=== PATIENT | female | born 1985 | race Caucasian/White ===

== ENCOUNTER 2020-07-27 10:32 | Outpatient (REF) | payer MEDICARE, MEDICAID, SELFPAY ==
[2020-07-27 13:50] LABS: MANUAL DIFF FLAG NO
[2020-07-27 14:12] LABS: Basophils Absolute Auto 0.1 X10*3/uL (0.0-0.2); Basophils Percent Auto 0.5 % (0-2); Eosinophils Absolute Auto 0.3 X10*3/uL (0.0-0.4); Eosinophils Percent Auto 2.5 % (0-4); Hematocrit 40.5 % (37-47); Hemoglobin 13.6 g/dl (12.0-16.0); Imm Gran Abs Auto 0.06 X10*3/uL (0.00-0.03); Imm Gran Pct Auto 0.5 % (0.0-0.4); Lymphocytes Absolute Auto 2.5 X10*3/uL (1.2-4.9); Mean Corpuscular HGB Conc 33.6 g/dl (31.0-35.0); Mean Corpuscular Volume 95.3 fL (80-98); Monocytes Absolute Auto 0.7 X10*3/uL (0.1-1.2); Monocytes Percent Auto 5.3 % (2-11); Neutrophils Absolute Auto 8.9 X10*3/uL (2.0-8.3); Neutrophils Percent Auto 71.2 % (45-73); Platelet Count 324 X10*3/uL (160-400); Red Blood Count 4.25 X10*6/uL (4.20-5.50); Red Cell Distribution Width 13.3 % (11.0-16.0); White Blood Count 12.5 X10*3/uL (4.8-10.8)
[2020-07-27 14:19] LABS: Estimated Average Glucose 97 mg/dL
[2020-07-27 14:23] LABS: Glucose Urine UA NEG (NEG); Leukocyte Esterase Urine NEG (NEG); Nitrite Urine NEG (NEG); PH 5.5 (5.0-8.0); Specific Gravity - Urine 1.025 (1.005-1.025); Urine Blood TRACE (NEG); Urine Ketones NEG (NEG); Urine Protein NEG (NEG-TRACE)
[2020-07-27 14:29] LABS: Appearance Urine CLEAR; Color Urine YELLOW
[2020-07-27 14:37] LABS: Alanine Aminotransferase 14 U/L (0-31); Albumin Level 3.8 g/dL (3.5-5.0); Alkaline Phosphatase 69 U/L (39-117); Anion Gap 12 (12-20); Aspartate Amino Transferase 16 U/L (5-31); Bilirubin Total 0.6 mg/dL (0.0-1.0); Blood Urea Nitrogen 7 mg/dL (9-16); Calcium 8.1 mg/dL (8.4-10.2); Carbon Dioxide 24 mmol/L (22-29); Chloride 107 mmol/L (96-108); Cholesterol 159 mg/dL; Estimated Glomerular Filt Rate > 60; Glucose Fasting 70 mg/dL (60-99); HDL Cholesterol 44 mg/dL; LDL Cholesterol Calculated 97 mg/dl; Potassium 4.4 mmol/L (3.3-5.1); Sodium 139 mmol/L (135-145); Total Protein 6.4 g/dL (6.5-8.0); Triglycerides 92 mg/dL
[2020-07-27 14:38] LABS: Bacteria Urine TRACE /LPF; RBC Urine 0-2 /HPF (0); Squamous Epithelial Cell Urine 3+ /LPF; WBC Urine 0-2 /HPF (0-4)
[2020-07-27 15:00] LABS: TSH reflex Free T4 2.03 uIU/mL (0.32-4.0); Vitamin D 25-OH Total 20.5 ng/mL (>30)
== END 2020-07-27 10:33 | disposition home or self-care (01) ==
LOC: HO.HMGCLDS 10:32
PROVIDERS: PCP Internal Medicine; Visit Provider Internal Medicine
DX: Z00.01 Encounter for general adult medical examination with abnormal findings (principal); F20.9 Schizophrenia, unspecified; F31.9 Bipolar disorder, unspecified; Z86.32 Personal history of gestational diabetes
CPT/HCPCS: 36415; 80053; 80061; 81001; 81003; 82306; 83036; 84443; 85025

== ENCOUNTER 2022-05-15 12:31 | Outpatient (REF) | payer OTHER, SELFPAY ==
[2022-05-15 13:55] LABS: MANUAL DIFF FLAG NO
[2022-05-15 14:08] LABS: Basophils Absolute Auto 0.1 X10*3/uL (0.0-0.2); Basophils Percent Auto 0.6 % (0-2); Eosinophils Absolute Auto 0.3 X10*3/uL (0.0-0.4); Eosinophils Percent Auto 2.4 % (0-4); Hematocrit 43.2 % (37.0-47.0); Hemoglobin 14.3 g/dl (12.0-16.0); Imm Gran Abs Auto 0.06 X10*3/uL (0.00-0.03); Imm Gran Pct Auto 0.5 % (0.0-0.4); Lymphocytes Percent Auto 25.2 % (20-40); Mean Corpuscular HGB Conc 33.1 g/dl (31.0-35.0); Mean Corpuscular Hemoglobin 31.7 pg (27.0-33.0); Mean Corpuscular Volume 95.8 fL (80.0-98.0); Mean Platelet Volume 9.6 fL (9.4-12.3); Monocytes Absolute Auto 0.7 X10*3/uL (0.1-1.2); Monocytes Percent Auto 6.1 % (2-11); Neutrophils Absolute Auto 7.8 x10*3/uL (2.0-8.3); Neutrophils Percent Auto 65.2 % (45-73); Platelet Count 358 X10*3/uL (160-400); Red Blood Count 4.51 X10*6/uL (4.20-5.50); Red Cell Distribution Width 12.6 % (11.0-16.0); White Blood Count 11.9 X10*3/uL (4.8-10.8)
[2022-05-15 14:11] LABS: Alanine Aminotransferase 12 U/L (0-31); Anion Gap 14 (12-20); Aspartate Amino Transferase 13 U/L (5-31); Blood Urea Nitrogen 6 mg/dL (9-16); Calcium 9.1 mg/dL (8.4-10.2); Carbon Dioxide 25 mmol/L (22-29); Chloride 105 mmol/L (96-108); Cholesterol 164 mg/dL; Estimated Glomerular Filt Rate > 60; Glucose Fasting 79 mg/dL (60-99); HDL Cholesterol 36 mg/dL; LDL Cholesterol Calculated 111 mg/dl; Potassium 4.2 mmol/L (3.3-5.1); Sodium 140 mmol/L (135-145); Triglycerides 88 mg/dL
[2022-05-15 14:14] LABS: Estimated Average Glucose 103 mg/dL; Hemoglobin A1c % 5.2 %
[2022-05-15 16:00] LABS: Vitamin D 25-OH Total 25.5 ng/mL (>30)
== END 2022-05-15 12:32 | disposition home or self-care (01) ==
LOC: HO.HMGCLDS 12:31
PROVIDERS: PCP Internal Medicine; Visit Provider Internal Medicine
DX: Z00.01 Encounter for general adult medical examination with abnormal findings (principal); F20.9 Schizophrenia, unspecified; Z86.39 Personal history of other endocrine, nutritional and metabolic disease
CPT/HCPCS: 36415; 80048; 80061; 82306; 83036; 84450; 84460; 85025

== ENCOUNTER 2023-05-23 11:54 | Outpatient (AMB) | payer OTHER, SELFPAY ==
--- NOTE | 2023-05-23 12:41 | A.OFFPC_ITS ---
Vital Signs 05/23/23 12:42 Height 5 ft Weight 147 lb BMI 28.7 BP 110/74 Blood Pressure Location Lt brachial Position Sitting Pulse 65 Pulse Source Pulse Oximeter Pulse Oximetry (%) 98 Oxygen Delivery Method Room Air Intake Visit Reasons: PE Intake Note: Pt is here today for PE. 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 Allergies haloperidol [From Haldol] Adverse Reaction (Verified 10/20/23 11:24) hives Medication List - Last Reconciled 05/23/23 by Anupama Eldridge MD melatonin 3 mg PO BEDTIME PRN olanzapine 10 mg PO BEDTIME Tobacco use date assessed: 05/23/23 Dental Screening Dental Screen Date: 05/23/23 Did you have a dental visit in the last 12 months?: Yes Did you have a dental problem in the last 6 months where you did not have access to dental care?: No Was dental information given to patient?: Patient has dentist HPI HPI Comments History of Present Illness Details 37-year-old lady here today for physical exam. She has history of schizophrenia currently followed at [facility] currently on olanzapine. She goes to [facility] for her routine Pap and pelvic exam patient states that she just had her Pap earlier this year with normal findings. [facility] Medical History (Updated 05/27/24 @ 02:49 by Anupama Eldridge MD) History of gestational diabetes Smoker unmotivated to quit Eczema History of demise, not currently Fracture of phalanx of index finger with routine healing Schizophrenia Surgical History No pertinent past surgical history Family History Father Family hx-arthritis Hx of diabetes mellitus Hyperlipidemia Mother History of cardiac murmur Tachycardia Brother Schizophrenia Social History Housing: Apartment Patient Tobacco Use Status: Current everyday Tobacco user Cigarettes Per Day: 0.5 Years Smoked: 10 e-Cigarette/Vaping Use: Never Used Current occupational status: unemployed Cognitive needs: No Hearing needs: No Vision needs: No Questionnaire PHQ-9 Over the last 2 weeks, how often have you been bothered by any of the following problems? 1. Little interest or pleasure in doing things: not at all 2. Feeling down, depressed, or hopeless: not at all 3. Trouble falling or staying asleep, or sleeping too much: not at all 4. Feeling tired or having little energy: not at all 5. Poor appetite or overeating: not at all 6. Feeling bad about yourself - or that you are a failure or have let yourself or your family down: not at all 7. Trouble concentrating on things, such as reading the newspaper or watching television: not at all 8. Moving or speaking so slowly that other people could have noticed. Or the opposite - being so fidgety or restless that you have been moving around a lot more than usual: not at all 9. Thoughts that you would be better off or of hurting yourself in some way: not at all Total score: 0 Depression Screening Interpretation: Negative (Has schizophrenia, currently being followed by Alfredo Rizvi at [facility]) Depression Screening Done: Yes 54244 - PHQ-9 Billing: Yes Source: Developed by Drs. Reagan Thomas, Nannette Pearl, Con Alvarado and colleagues, with an educational esha from [employer]. Thrive Questionnaire Date Thrive assessed: 05/23/23 I am a: Patient What is your living situation today?: I have a steady place to live Within the past 12 months, did the food you bought not last and you didn't have the money to get more?: Never true Within the past 12 months, did you worry whether your food would run out before you got money to buy more?: Never true Do you have trouble paying for medicines?: No Do you have trouble getting transportation to medical appointments?: No Do you have trouble paying your heating and electricity bill?: No Do you have trouble taking care of your child, family member or friend?: No Do you have trouble with day-to-day activities such as bathing, preparing meals, shopping, managing finances, etc.?: No Are you currently unemployed and looking for a job?: No Are you interested in more education?: No Please select the resources that you would like help with: None AUDIT C Alcohol Use Questionnaire (AUDIT-C) 1. How often do you have a drink containing alcohol?: Never 3. How often do you have six or more drinks on one occasion?: Never Total Score: 0 CHRISTIE-7 AMB Questionnaire CHRISTIE-7 Date CHRISTIE - 7 assessed: 05/23/23 Feeling nervous, anxious, or on edge: 0 = Not at all Not being able to stop or control worryin = Not at all Worrying too much about different things: 0 = Not at all Trouble relaxin = Not at all Being so restless that it is hard to sit still: 0 = Not at all Becoming easily annoyed or irritable: 0 = Not at all Feeling afraid as if something awful might happen: 0 = Not at all Total CHRISTIE-7 score (0-4 normal; 5-9 mild; 10-14 moderate; 15-21 severe): 0 Source: Developed by Drs. Reagan Thomas, Nannette Pearl, Con Alvarado and colleagues, with an educational esha from [employer]. CHRISTIE-7 Assessment Billing CHRISTIE-7 Assessment Tool: CHRISTIE-7 Assessment 34865 Review of Systems Const Denies body aches, Denies fatigue, Denies fever(s), Denies headache(s) and Denies weakness Eyes Denies change in vision ENT Denies dizziness, Denies headache(s), Denies nasal congestion, Denies nasal discharge and Denies sore throat Card Denies chest pain, Denies lightheadedness, Denies palpitations and Denies dyspnea Resp Denies chest congestion, Denies cough, Denies dyspnea and Denies wheezing GI Denies abdominal pain, Denies change in bowel habits and Denies heartburn Denies urinary frequency, Denies dysuria and Denies urinary urgency Musc Reports no additional complaints and Reports stiffness Skin/Breast Denies lesions and Denies rash Neuro Denies dizziness, Denies headache(s) and Denies weakness Psych Reports no additional complaints Endo Denies fatigue, Denies polydipsia, Denies polyuria and Denies palpitations Carl/Lymph Denies easy bruising Aller/Immun Denies seasonal rhinorrhea and Denies wheezing Physical exam (Primary Care) Vital Signs: Last Vital Signs Pulse 65 05/23/23 12:42 BP 110/74 05/23/23 12:42 Pulse Ox 98 05/23/23 12:42 Oxygen Delivery Method Room Air 05/23/23 12:42 BMI result Body Mass Index 28.7 Tobacco/Smoking Status: Tobacco use Status Tobacco use date assessed 05/23/23 05/23/23 12:47 Patient Tobacco Use Status Current everyday Tobacco 05/23/23 12:41 e-Cigarette/Vaping Use Never Used 05/23/23 12:41 Are you ready to quit: No PHQ-9: PHQ-9 Score PHQ-9: Total score 0 05/23/23 13:16 Depression Screening Interpretation: Negative (Has schizophrenia, currently being followed by Alfredo Rizvi at [facility]) Thrive Assessment: Date of Thrive Assessment Date Thrive assessed 05/23/23 05/23/23 13:16 Const General: comfortable, no acute distress and alert Nutritional Appearance: average body habitus Orientation/consciousness: patient oriented x3 HENMT Ears: TM's normal bilaterally and EAC's normal General nose exam: Normal external nose present and No nasal discharge present Face and sinus: Yes face symmetric Mouth: Normal oral and palatal mucosa present, oropharynx normal and moist mucous membranes Eyes General: appearance normal, both eyes and all related structures Neck Neck: Yes full ROM, Yes no lymphadenopathy, Yes no meningeal signs and Yes supple Thyroid: Thyroid normal Chest Chest palpation & inspection: normal inspection of the chest Breast/axilla palpation: normal palpation of the breasts Resp Effort & Inspection: normal respiratory effort and able to speak in complete sentences Auscultation: clear to auscultation bilaterally Cardio Rate: regular rate Rhythm: regular rhythm Heart sounds: S1 normal heart sound present and S2 normal heart sound present GI Palpation (GI): Soft to palpation, nontender, no guarding and no masses Auscultation: normal bowel sounds General: Yes no CVA tenderness and Yes deferred Back/Spine/Pelvis Back: no CVA tenderness and No back tenderness Skin General skin exam: no rashes or lesions noted Neuro General: patient oriented x3, gait normal, moves all extremities, Normal light touch and pain sensation, no meningeal signs, no focal motor deficits and CN's II-XI intact bilaterally Extrem General: Yes normal to inspection, Yes full ROM, Yes no joint enlargement, Yes no clubbing, cyanosis or edema, Yes no calf tenderness and Yes normal gait Psych Appearance: grossly normal and well kempt Mental Status: mental status grossly normal Speech and movement: Normal speech and movement present Affect: normal affect Attitude: cooperative Thought process: Normal thought process present Office Procedures Flu Questionnaire Does the patient have a severe egg allergy?: No Does the patient have severe life threatening allergies?: No Does the patient have a fever or illness today?: No Has the patient ever had Guillain-Ceylon Syndrome?: No Has the patient ever had any past reaction to a flu shot?: No Immunizations flu vacc [id number] 6mos up(PF) 60 mcg(15 mcgx4)/0.5 mL IM syringe Performing Provider: Anupama Eldridge MD [facility] Administered by: COLTON Nunes on 05/23/23 13:17 Dose Route Admin Location Dispensed Lot Number Expiration Date NDC Employment Counselor 0.5 mL IM Right Deltoid 0.5 mL [id number] 12/21/23 14707-722-78 MSI VIS Given Date VIS Provided VIS Publication Date 05/23/23 Single Vaccine 21 Eligibility Eligibility Date Funding Source Not [facility] Eligible 05/23/23 Private Coding Level of Care Code Est Pt Prev Care 18-39y(02267) Diagnoses Annual visit for general adult medical examination with abnormal findings Z00.01 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
[2023-05-23 12:42] VITALS: BP 110/74; PULSE 65; O2SAT 98; BMI 28.7
== END 2023-05-23 14:06 | disposition home or self-care (01) ==
PROVIDERS: Visit Provider Internal Medicine
DX: Z00.00 Encounter for general adult medical examination without abnormal findings (principal); F20.3 Undifferentiated schizophrenia; F17.200 Nicotine dependence, unspecified, uncomplicated
CPT/HCPCS: 90471; 90686; 99395

== ENCOUNTER 2023-05-29 08:50 | Outpatient (REF) | payer OTHER, SELFPAY ==
[2023-05-29 11:52] LABS: Alanine Aminotransferase 18 U/L (0-31); Aspartate Amino Transferase 17 U/L (5-31); Cholesterol 170 mg/dL (<200); Glucose Fasting 81 mg/dL (60-99); HDL Cholesterol 42 mg/dL (>40); LDL Cholesterol Calculated 111 mg/dL (<100); Triglycerides 86 mg/dL (<150)
[2023-05-29 12:09] LABS: TSH reflex Free T4 1.18 uIU/mL (0.32-4.0)
== END 2023-05-29 08:51 | disposition home or self-care (01) ==
LOC: HO.HMGCLDS 08:50
PROVIDERS: PCP Internal Medicine; Visit Provider Internal Medicine
DX: O24.419 Gestational diabetes mellitus in pregnancy, unspecified control (principal); O26.899 Other specified pregnancy related conditions, unspecified trimester; F20.9 Schizophrenia, unspecified
CPT/HCPCS: 36415; 80061; 82947; 84443; 84450; 84460

== ENCOUNTER 2023-10-20 09:38 | Outpatient (AMB) | payer OTHER, SELFPAY ==
--- OUTSIDE RECORDS SUMMARY | 2023-10-20 09:40 | XMS_ITS | Continuity of Care Document ---
Author Organization [facility] [employer] [employer] Address [address] [place] [address]- Care Team Providers Care Railroad Inspector Name Role Phone Not on Staff, PCP Primary Care Physician Unavail able Encounter [facility] Date(s): 08/28/22 - 09/27/22 [facility] [address] [address] Allergies, Adverse Reactions, Alerts Substance Reaction Severity Status penicillin Active Ativan 1 Active Cogentin Active Latex Active RisperDAL Active 1Rash Immunizations Given and Recorded Vaccine Date Status Refusal Reason influenza virus vaccine, inactivated 04/17/18 Give n influenza virus vaccine, inactivated 1 05/08/17 Gi albert influenza virus vaccine, inactivated 2 07/02/16 Gi albert tetanus/diphtheria/pertussis, acel(Tdap) 07/11/17 Given Diphth-Tetanus Toxoids Adsorbed(oldterm) 3 06/01/05 Given 1Admin Note: AFLURIA quadrivalence [facility] 2001 02848-061-78 2Result Comment: afluria 3Result Comment: lot # Td 137 Medications Isibloom 0.15 mg-0.03 mg oral tablet 1 tablet, By Mouth, Daily, # 84 tablet, 0 Refills, Maintenance, 08/16/22 15:55:00 EST, [id number], 84, TAKE 1 TABLET BY MOUTH DAILY, 157, cm, 08/16/22 14:46:00 EST, Height Start Date: 08/16/22 Status: Ordered Problem List Condition Confirmation Course Effective Dates Status H ealth Status Informant Chromosomal Translocation Confirmed Active General counseling and advice for contraceptive management Confirmed Active hx of demise Confirmed Active Schizophrenic disorder Confirmed Active Smoker Confirmed Active Social History Social History Type Response Smoking Status Current every day roxane rodríguez entered on: 11/05/17 Sex Patient Care team information Care Team Personnel Name: Not on Staff, PCP [facility] Physician (General Medicine) Member Role: PCP Name: Ankit RNMadelyn Position: [facility] OB RN Member Role: Primary Care Nurse Care Team Related Persons Name: HAILEY WALLS Address: [place] [address] Name: SARANYA ABRAMS Address: [address] Address: home [address] [place] [address] Name: SU STOKES Address: home [address] [place] [address]
--- OUTSIDE RECORDS SUMMARY | 2023-10-20 09:40 | XMS_ITS | Continuity of Care Document ---
Author Organization [facility] Address [address] [place] [address]- Care Team Providers Care Estimation Manager Name Role Phone Not on Staff, PCP Primary Care Physician Unavail able [facility]counter [facility] Date(s): 08/16/22 - 09/15/22 [facility] [address] [address]- Attending Physician: Delroy Donato Admitting Physician: AdmtrDelroy Referring Physician: Admtr ArBan Allergies, Adverse Reactions, Alerts Substance Reaction Severity [...] 06/01/05 Given 1Admin Note: AFLURIA quadrivalence VACCINE [facility] 60207-297-26 2Result Comment: afluria 3Result Comment: lot # Td 137 Medications Isibloom 0.15 mg-0.03 mg oral tablet 1 tablet, By Mouth, Daily, # 84 tablet, 0 Refills, Maintenance, 08/16/22 15:55:00 EST, [id number], 84, TAKE 1 TABLET BY MOUTH DAILY, [...] day roxane rodríguez entered on: 11/05/17 Sex Note * Event Display: Ultrasound Obstetric, Non-BH Authored Date: * Event Display: Ultrasound Obstetric, Non-BH Authored Date: * Event Display: Non BH Lab Results Authored Date: * Event Display: Ultrasound Obstetric, Non-BH Authored Date: Patient Care team information Care Team Personnel Name: Not on Staff, PCP Position: [facility] Physician (General Medicine) Member Role: PCP Name: Ankit RNMadelyn Position: [facility] OB RN Member Role: Primary Care Nurse Care Team Related Persons Name: TITIHAILEY Address: [place] [address] Name: SARANYA ABRAMS Address: [id number] Address: home [address] [place] [address] [place] Name: SU STOKES Address: home [address] [place] [address]
--- OUTSIDE RECORDS SUMMARY | 2023-10-20 09:40 | XMS_ITS | Continuity of Care Document ---
Author Organization [facility] Address [address] [place] [address]- Care Team Providers Care Wine Bottle Inspector Name Role Phone Not on Staff, PCP Primary Care Physician Unavail able [facility]counter [facility] Date(s): 08/01/22 - 08/31/22 [facility] [address] [address] Allergies, Adverse Reactions, Alerts Substance Reaction Severity Status penicillin Active Ativan 1 Active RisperDAL Active Cogentin Active Latex Active 1Rash Immunizations Given and Recorded Vaccine Date Status Refusal Reason influenza virus vaccine, inactivated 04/17/18 Give n influenza virus vaccine, inactivated 1 05/08/17 Gi albert influenza virus vaccine, inactivated 2 07/02/16 Gi albert tetanus/diphtheria/pertussis, acel(Tdap) 07/11/17 Given Diphth-Tetanus Toxoids Adsorbed(oldterm) 3 06/01/05 Given 1Admin Note: AFLURIA quadrivalence VACCINE [facility] 48437-903-27 2Result Comment: afluria 3Result Comment: lot # Td 137 Medications Isibloom 0.15 mg-0.03 mg oral tablet 1 tablet, By Mouth, Daily, # 84 tablet, 0 Refills, Maintenance, 08/16/22 15:55:00 EST, [facility][id number], 84, TAKE 1 TABLET BY MOUTH DAILY, [...] Personnel Name: Not on Staff, PCP Position: [facility] Physician (General Medicine) Member Role: PCP Name: Ankit RNMadelyn Position: [facility] OB RN Member Role: Primary Care Nurse Care Team Related Persons Name: HAILEY WALLS Address: [place] [address] Name: SARANYA ABRAMS Address: [id number] Address: home [address] [place] [address] Name: SU STOKES Address: home [address] [place] [address]
[2023-10-20 11:01] VITALS: BP 108/70; PULSE 90; TEMP 36.7; O2SAT 96; BMI 28.9
--- NOTE | 2023-10-20 11:01 | AM.OFFWIN_ITS ---
Intake Vital Signs 10/20/23 11:01 Height 5 ft Weight 148 lb 2 oz BMI 28.9 BP 108/70 Blood Pressure Location Lt brachial Position Sitting Pulse 90 Pulse Source Pulse Oximeter Temp 98.1 F Temp Source Oral Pulse Oximetry (%) 96 Oxygen Delivery Method Room Air Intake Visit Reasons: EP rash on elbows/feet Intake Note: Pt presents to the office today for c/o rash on elbows and feet. She states she has been having this for a few months and she states it is itchy. Patient Tobacco Use Status: Current everyday Tobacco user Allergies haloperidol [From Haldol] Adverse Reaction (Verified 10/20/23 11:24) hives Medication List - Last Reconciled 10/20/23 by Coleman Kimble MD melatonin 3 mg PO BEDTIME PRN olanzapine 10 mg PO BEDTIME HPI EP rash on elbows/feet HPI Details 38 yr old female presents to the office for a sick visit. Patient has a rash on her elbows for the past six months. Very itchy and sometimes bleeds. [facility] Medical History (Updated 10/20/23 @ 11:26 by Coleman Kimble MD) Eczema History of demise, not currently Gestational diabetes Fracture of phalanx of index finger with routine healing Schizophrenia Surgical History No pertinent past surgical history Family History Father Family hx-arthritis Hx of diabetes mellitus Hyperlipidemia Mother History of cardiac murmur Tachycardia Brother Schizophrenia Social History Housing: Apartment Patient Tobacco Use Status: Current everyday Tobacco user Cigarettes Per Day: 0.5 Years Smoked: 10 e-Cigarette/Vaping Use: Never Used Current occupational status: unemployed Cognitive needs: No Hearing needs: No Vision needs: No Physical Exam Vital Signs: Last Vital Signs Temp 98.1 F 10/20/23 11:01 Pulse 90 10/20/23 11:01 BP 108/70 10/20/23 11:01 Pulse Ox 96 10/20/23 11:01 Oxygen Delivery Method Room Air 10/20/23 11:01 BMI result Body Mass Index 28.9 Skin Other: Elbow: bilateral: dorsal surface: thickened skin, scaly rash, hyperemic areas which suggest bleeding in the past. Assessment & Plan Assessment & Plan (1) Eczema: Code(s): L30.9 - Dermatitis, unspecified Plan: Triamcinolone cream to affected area bid. Keep area dry. Coding Level of Care Code Est Pt Level 3 (04545) Diagnoses Eczema L30.9
== END 2023-10-20 11:36 | disposition home or self-care (01) ==
PROVIDERS: PCP Internal Medicine; Visit Provider Internal Medicine
DX: L30.9 Dermatitis, unspecified (principal)
CPT/HCPCS: 99213

== ENCOUNTER 2024-12-23 13:50 | Outpatient (AMB) | payer OTHER, SELFPAY ==
--- OUTSIDE RECORDS SUMMARY | 2024-12-23 13:55 | XMS_ITS | Patient Health Record ---
Author Organization [facility] Address [address] [place] [address] Care Team Providers Care Vacuum Metalizer Operator Name Role Phone Anupama Eldridge Primary Care Provider Unavailab le Clinical, Operations Unavailable Unavailable Allergies No Known Allergies Reason For Referral No Information Medications Medication SIG (Take, Route, Fr equency, Duration) Notes Start Date End Date Status OLANZapine 10 MG 1 tablet Orally Once a day Unknown Melatonin 3 MG 1 tablet at bedtime as needed Orally Once a day Unknown Problems Problem Type SNOMED Code ICD Code Onset Dates Problem Status W/U Status Risk Notes Problem [id number] Encounter for gynecological examination (general) (routine) without abnormal findings (Z01.419) Active confirmed Problem 617125006 Personal history of other endocrine, nutritional and metabolic disease (Z86.39) Active confirmed Problem 34329898 Nicotine dependence, uncomplicated, unspecified nicotine product type (F17.200) Active confirmed Problem 57638881 Schizophrenia, unspecified type (F20.9) Active confirmed Encounters Encounter Location Date Provider Diagnosis [facility] [address] [place] [address] 03/29/2024 Operations Clinical Schizophrenia, unspecified type F20.9 ; Encounter for gynecological examination (general) (routine) without abnormal findings Z01.419 ; Nicotine dependence, uncomplicated, unspecified nicotine product type F17.200 and Personal history of other endocrine, nutritional and metabolic disease Z86.39 Assessments Encounter Date Diagnosis (ICD Code) Assessment Notes Treatment Notes Treatment Clinical Notes Section Notes 03/29/2024 Schizophrenia, unspecified type (ICD-10 - F20.9) 03/29/2024 Encounter for gynecological examination (general) (routine) without abnormal findings (ICD-10 - Z01.419) 03/29/2024 Nicotine dependence, uncomplicated, unspecified nicotine product type (ICD-10 - F17.200) 03/29/2024 Personal history of other endocrine, nutritional and metabolic disease (ICD-10 - Z86.39) Plan Of Treatment No Information Insurance Providers Payer Name Payer Address Payer Phone Subscriber Number Group Number Insured Name Patient Relationship to Insured Coverage Start Date [facility] End Date [facility] [place] [address] [id number] KATERINE WALLS Self - patient is the insured 2 [id number]
--- NOTE | 2024-12-23 14:07 | A.OFFPC_ITS ---
Vital Signs 12/23/24 14:40 Height 5 ft Weight 147 lb BMI 28.7 BP 102/72 Blood Pressure Location Lt brachial Position Sitting Respiration 16 Pulse 75 Pulse Source Pulse Oximeter Temp 98.2 F Temp Source Oral Pulse Oximetry (%) 99 Oxygen Delivery Method Room Air Intake Visit Reasons: Annual PE Intake Note: Pt is here today for her PE: last papsmear 08/16/22 Is last menstrual period known: Yes Last menstrual period: 12/10/24 Allergies haloperidol (From Haldol) Adverse Reaction (Verified 12/23/24 14:52) hives Medication List - Last Reconciled 12/23/24 by Anupama Eldridge MD olanzapine 7.5 mg PO BEDTIME Tobacco use date assessed: 12/23/24 Dental Screening Dental Screen Date: 12/23/24 Did you have a dental visit in the last 12 months?: Yes Did you have a dental problem in the last 6 months where you did not have access to dental care?: No Was dental information given to patient?: Patient has dentist HPI Annual PE HPI Details 39-year-old lady here today for her phys ical exam. She is up-to-date with her cervical cancer screening, goes to [facility]', with last Pap smear done 08/16/2022 which showed negative findings. She is currently being seen by Alfredo Rizvi for her schizophrenia, currently controlled on olanzapine. She has smoked at least 6 cigarettes a day, wanting to quit, wants to try using the nicotine patch to help quit smoking [facility] Medical History (Updated 12/23/24 @ 15:06 by Anupama Eldridge MD) Cigarette smoker motivated to quit History of gestational diabetes Smoker unmotivated to quit Eczema History of demise, not currently Fracture of phalanx of index finger with routine healing Schizophrenia Surgical History No pertinent past surgical history Family History Father Family hx-arthritis Hx of diabetes mellitus Hyperlipidemia Mother History of cardiac murmur Tachycardia Brother Schizophrenia Social History Housing: Apartment Patient Tobacco Use Status: Current everyday Tobacco user Cigarettes Per Day: 0.5 Years Smoked: 10 e-Cigarette/Vaping Use: Never Used Current occupational status: unemployed Cognitive needs: No Hearing needs: No Vision needs: No Female Reproductive History Menstrual Date of last menstrual period: 12/10/24 Questionnaire PHQ-9 Over the last 2 weeks, how often have you been bothered by any of the following problems? 1. Little interest or pleasure in doing things: not at all 2. Feeling down, depressed, or hopeless: not at all 3. Trouble falling or staying asleep, or sleeping too much: not at all 4. Feeling tired or having little energy: not at all 5. Poor appetite or overeating: several days 6. Feeling bad about yourself - or that you are a failure or have let yourself or your family down: not at all 7. Trouble concentrating on things, such as reading the newspaper or watching television: not at all 8. Moving or speaking so slowly that other people could have noticed. Or the opposite - being so fidgety or restless that you have been moving around a lot more than usual: not at all 9. Thoughts that you would be better off or of hurting yourself in some way: not at all Total score: 1 Depression Screening Interpretation: Negative Depression Screening Done: Yes 69207 - PHQ-9 Billing: Yes Source: Developed by Drs. Reagan Thomas, Nannette Pearl, Con Alvarado and colleagues, with an educational esha from [employer]. Thrive Questionnaire Date Thrive assessed: 12/23/24 I am a: Patient What is your living situation today?: I have a steady place to live Within the past 12 months, did the food you bought not last and you didn't have the money to get more?: Never true Within the past 12 months, did you worry whether your food would run out before you got money to buy more?: Never true Do you have trouble paying for medicines?: No Do you have trouble getting transportation to medical appointments?: No Do you have trouble paying your heating and electricity bill?: No Do you have trouble taking care of your child, family member or friend?: No Do you have trouble with day-to-day activities such as bathing, preparing meals, shopping, managing finances, etc.?: No Are you currently unemployed and looking for a job?: Yes Are you interested in more education?: No THRIVE Score: 0 AUDIT C Alcohol Use Questionnaire (AUDIT-C) 1. How often do you have a drink containing alcohol?: Never Total Score: 0 CHRISTIE-7 AMB Questionnaire CHRISTIE-7 Date CHRISTIE - 7 assessed: 12/23/24 Feeling nervous, anxious, or on edge: 0 = Not at all Not being able to stop or control worryin = Not at all Worrying too much about different things: 0 = Not at all Trouble relaxin = Not at all Being so restless that it is hard to sit still: 0 = Not at all Feeling afraid as if something awful might happen: 0 = Not at all Source: Developed by Drs. Reagan Thomas, Nannette Pearl, Con Alvarado and colleagues, with an educational esha from [employer]. CHRISTIE-7 Assessment Billing CHRISTIE-7 Assessment Tool: CHRISTIE-7 Assessment 92148 Review of Systems Const Denies body aches, Denies fatigue, Denies fever(s), Denies headache(s) and Denies weakness Eyes Denies change in vision ENT Denies dizziness, Denies headache(s), Denies nasal congestion, Denies nasal discharge and Denies sore throat Card Denies chest pain, Denies lightheadedness, Denies palpitations and Denies dyspnea Resp Denies chest congestion, Denies cough, Denies dyspnea and Denies wheezing GI Denies abdominal pain, Denies change in bowel habits and Denies heartburn Denies urinary frequency, Denies dysuria and Denies urinary urgency Musc Reports no additional complaints and Reports stiffness Skin/Breast Denies lesions and Denies rash Neuro Denies dizziness, Denies headache(s) and Denies weakness Psych Reports no additional complaints Endo Denies fatigue, Denies polydipsia, Denies polyuria and Denies palpitations Carl/Lymph Denies easy bruising Aller/Immun Denies seasonal rhinorrhea and Denies wheezing Physical exam (Primary Care) Vital Signs: Last Vital Signs Temp 98.2 F 12/23/24 14:40 Pulse 75 12/23/24 14:40 Resp 16 12/23/24 14:40 BP 102/72 12/23/24 14:40 Pulse Ox 99 12/23/24 14:40 Oxygen Delivery Method Room Air 12/23/24 14:40 BMI result Body Mass Index 28.7 Tobacco/Smoking Status: Tobacco use Status Tobacco use date assessed 12/23/24 12/23/24 14:09 Patient Tobacco Use Status Current everyday Tobacco 12/23/24 14:07 e-Cigarette/Vaping Use Never Used 12/23/24 14:07 Are you ready to quit: No PHQ-9: PHQ-9 Score PHQ-9: Total score 1 12/23/24 14:56 Depression Screening Interpretation: Negative Thrive Assessment: Date of Thrive Assessment Date Thrive assessed 12/23/24 12/23/24 14:51 Const General: comfortable, no acute distress and alert Nutritional Appearance: average body habitus Orientation/consciousness: patient oriented x3 HENMT Ears: TM's normal bilaterally and EAC's normal General nose exam: Normal external nose present and No nasal discharge present Face and sinus: Yes face symmetric Mouth: Normal oral and palatal mucosa present, oropharynx normal and moist mucous membranes Eyes General: appearance normal, both eyes and all related structures Neck Neck: Yes full ROM, Yes no lymphadenopathy, Yes no meningeal signs and Yes supple Thyroid: Thyroid normal Chest Chest palpation & inspection: normal inspection of the chest Breast/axilla palpation: normal palpation of the breasts Resp Effort & Inspection: normal respiratory effort and able to speak in complete sentences Auscultation: clear to auscultation bilaterally Cardio Rate: regular rate Rhythm: regular rhythm Heart sounds: S1 normal heart sound present and S2 normal heart sound present GI Palpation (GI): Soft to palpation, nontender, no guarding and no masses Auscultation: normal bowel sounds General: Yes no CVA tenderness and Yes deferred Back/Spine/Pelvis Back: no CVA tenderness and No back tenderness Skin General skin exam: no rashes or lesions noted Neuro General: patient oriented x3, gait normal, moves all extremities, Normal light touch and pain sensation, no meningeal signs, no focal motor deficits and CN's II-XI intact bilaterally Extrem General: Yes normal to inspection, Yes full ROM, Yes no joint enlargement, Yes no clubbing, cyanosis or edema, Yes no calf tenderness and Yes normal gait Psych Appearance: grossly normal and well kempt Mental Status: mental status grossly normal Speech and movement: Normal speech and movement present Affect: normal affect Attitude: cooperative Thought process: Normal thought process present Coding Level of Care Code Est Pt Prev Care 18-39y(56503) Diagnoses Annual visit for general adult medical examination with abnormal findings Z00.01 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 - Encounter for general adult medical examination with abnormal findings Plan: Patient reminded to get her fasting labs done. Recommended dental visit every 6 months and regular eye exams, at least every 2 years. Take adequate calcium in diet and vitamin-D 3 at 2000 IU per cap once a day, in addition to weight- bearing exercises to help maintain good muscle tone and weight control. Instructed to do self-breast exam, and recommended to get yearly mammogram, starting at age 40. Up-to-date with her cervical cancer screening, done in 2022 . Reminded to get her flu vaccine yearly and get an updated tetanus diphtheria booster from the pharmacy. Patient declined getting further COVID vaccine (2) Schizophrenia: Comment: ff'd at [facility] by Dr Alfredo Jackson Code(s): F20.9 - Schizophrenia, unspecified Category: Medical Qualifiers: Schizophrenia type: undifferentiated schizophrenia Qualified Code(s): F20.3 - Undifferentiated schizophrenia Plan: Followed at [facility], currently controlled on present treatment with olanzapine (3) Cigarette smoker motivated to quit: Code(s): F17.210 - Nicotine dependence, cigarettes, uncomplicated Category: Social Hx Plan: Will start on nicotine patch 14 mg per patch, apply to clean dry areas on upper chest upper back or upper arms, rotate sites of use, remove patch before sleeping at night. Has possible side effects of treatment which may include skin skin irritation. Will see her back for follow-up in 4 weeks after starting the patches (4) Advanced directives, counseling/discussion: Code(s): Z71.89 - Other specified counseling Plan: Initiated the conversation about Advanced Directives. Advanced Directives help patients prepare for current and future decisions about their medical treatment and place of care. Discussed with patient that it is a process where a patients current condition and prognosis are reviewed, their wishes for information regarding their illness are elicited, and likely medical dilemmas are presented and options discussed. Healthcare proxy form completed The form can be amended as needed, reviewed yearly and make changes as needed Medications: New nicotine Rotate sites of application and remove at bedtime. 1 patch transdermal DAILY 28 ea 1RF
[2024-12-23 14:40] VITALS: BP 102/72; PULSE 75; RESP 16; TEMP 36.8; O2SAT 99; BMI 28.7
== END 2024-12-23 15:11 | disposition home or self-care (01) ==
PROVIDERS: PCP Internal Medicine; Visit Provider Internal Medicine
DX: Z00.01 Encounter for general adult medical examination with abnormal findings (principal); F20.3 Undifferentiated schizophrenia; F17.210 Nicotine dependence, cigarettes, uncomplicated; Z71.89 Other specified counseling

== ENCOUNTER → 2024-12-23 13:50 | Outpatient (BNVA) | payer OTHER, SELFPAY | PROVIDERS: PCP Internal Medicine; Visit Provider Internal Medicine | DX: Z00.01 Encounter for general adult medical examination with abnormal findings (principal); F20.3 Undifferentiated schizophrenia; F17.210 Nicotine dependence, cigarettes, uncomplicated; Z71.89 Other specified counseling | CPT/HCPCS: 96127 ==

== ENCOUNTER 2024-12-27 11:25 | Outpatient (REF) | payer OTHER, SELFPAY ==
--- OUTSIDE RECORDS SUMMARY | 2024-12-27 12:21 | XMS_ITS | Clinical Summary ---
Author Organization [facility] Address [address] [place] [address] Care Team Providers Care Enterprise Systems Engineer Name Role Phone Jodie Polk MD Primary Care Provider Unava ilable Allergies No known active allergies Medications Medication Sig Dispensed Refills Start Date End Date Status haloperidol decanoate (HALDOL DECANOATE) 50 MG/ML injection Inject into the muscle every 28 days. 0 Active haloperidol (HALDOL) 1 MG tablet Take 1 mg by mouth 2 times daily. 0 Active hydrocortisone 1 % cream Apply 1 Units topically 2 times daily. 30 g 0 04/16/2018 Active Active Problems Problem Noted Date Mild intermittent asthma without complic ation 02/06/2017 Psychosis 02/06/2017 Agitation 02/06/2017 Anxiety 02/06/2017 Family History Medical History Relation Name Comments No Known Problems Brother 1 No Known Problems Brother 2 No Known Problems Father Hypertension Mother valvular heart disease Anemia Sister 1 Asthma Sister 2 Depression/Anxiety Sister 3 some sort of heart issue Sister 4 No Known Problems Son : 2017 CA Breast Negative Hx CA Colon Negative Hx CA Ovarian Negative Hx Diabetes Negative Hx VT Negative Hx Stroke Negative Hx Relation Name Status Comments Brother 1 Alive Brother 2 Alive Father Alive Maternal Grandfather Maternal Grandmother Mother Alive Paternal Grandfather Paternal Grandmother Sister 1 Alive Sister 2 Alive Sister 3 Alive Sister 4 Alive Son Alive Social History Tobacco Use Types Packs/Day Years Used Date Smoking Tobacco: Former Cigarettes Q uit: 01/21/2017 Smokeless Tobacco: Never Alcohol Use Standard Drinks/Week Comments No 0 (1 standard drink = 0.6 oz pur e alcohol) Sex Assigned at Date Recorded Not on file Last Filed Vital Signs Vital Sign Reading Time Taken Comments Blood Pressure 117/75 04/16/2018 3:17 PM EDT Pulse 60 04/16/2018 3:17 PM EDT Temperature 36.8 C (98.2 F) 04/16/2018 3:17 PM EDT Respiratory Rate 12 02/06/2017 9:17 AM EDT Oxygen Saturation - - Inhaled Oxygen Concentration - - Weight 54.8 kg (120 lb 12.8 oz) 04/16/2018 3:17 PM EDT Height 152.4 cm (5') 04/16/2018 3:17 PM EDT Body Mass Index 23.59 04/16/2018 3:17 PM EDT Plan of Treatment Health Maintenance Due Date Last Done Comments Covid-19 Vaccine (#1) 03/12/1986 DTAP/TDAP/TD (1 - Tdap) 2004 PNEUMOCOCCAL VACCINE FOR HIG H RISK PATIENTS (#1) 2004 CERVICAL CANCER SCREENING 2006 DEPRESSION SCREEN 04/16/2019 04/16/2018, 02/06/2017 CHOLESTEROL SCREENING 04/16/2023 04/16/2018, 017 INFLUENZA (#1) 2025 04/16/2018 (Refused) Care Teams Enterprise Systems Engineer Relationship Specialty Start Date End Date Jodie Polk MD PCP - General Internal Medicine 01/14/17
--- OUTSIDE RECORDS SUMMARY | 2024-12-27 12:21 | XMS_ITS | Patient Health Record ---
Author Organization [facility] Address [address] [place] [address] Care Team Providers Care Erecting Engineer Name Role Phone Anupama Eldridge Primary Care [...] Problem Status W/U Status Risk Notes Problem [id number] Encounter for gynecological examination (general) (routine) without abnormal findings (Z01.419) Active confirmed Problem [id number] Personal history of other endocrine, nutritional and metabolic disease (Z86.39) Active confirmed Problem 78509329 Nicotine dependence, uncomplicated, unspecified nicotine product type (F17.200) Active confirmed Problem [id number] Schizophrenia, unspecified type (F20.9) Active confirmed Encounters Encounter Location Date Provider Diagnosis [facility] [address] [place] [address] 03/29/2024 Operations Clinical Schizophrenia, unspecified type F20.9 [...] Insured Coverage Start Date [facility]age End [facility] [place] [address] [id number] KATERINE WALLS Self - patient is the insured 2 9
[2024-12-27 15:05] LABS: Alanine Aminotransferase 24 U/L (0-31); Aspartate Amino Transferase 28 U/L (5-31); Cholesterol 192 mg/dL (<200); HDL Cholesterol 34 mg/dL (>40); Triglycerides 131 mg/dL (<150)
== END 2024-12-27 11:26 | disposition home or self-care (01) ==
LOC: HO.HMGCLDS 11:25
PROVIDERS: PCP Internal Medicine; Visit Provider Internal Medicine
DX: F20.3 Undifferentiated schizophrenia (principal); Z13.220 Encounter for screening for lipoid disorders; Z13.1 Encounter for screening for diabetes mellitus
CPT/HCPCS: 36415; 80061; 82947; 84450; 84460

== ENCOUNTER 2025-05-02 10:20 | Outpatient (AMB) | payer OTHER, SELFPAY ==
[2025-05-02 10:29] VITALS: BP 114/80; PULSE 76; TEMP 36.6; O2SAT 97; BMI 28.1
--- NOTE | 2025-05-02 10:29 | AM.OFFWIN_ITS ---
Intake Vital Signs 05/02/25 10:29 Height 5 ft Weight 144 lb BMI 28.1 BP 114/80 Blood Pressure Location Lt brachial Position Sitting Pulse 76 Pulse Source Pulse Oximeter Temp 98 F Temp Source Oral Pulse Oximetry (%) 97 Oxygen Delivery Method Room Air Intake Visit Reasons: EP Pain/itchiness both ears Intake Note: Patient presents with c/o bilateral ear pain/itching x1 month. Patient Tobacco Use Status: Current everyday Tobacco user Allergies haloperidol (From Haldol) Adverse Reaction (Verified 05/02/25 10:31) hives Medication List - Last Reconciled 05/02/25 by Lesly Clements NP amoxicillin-pot clavulanate 875-125 mg 1 tab PO BID 5 days clotrimazole 1% 1 appl topical BID 10 days nicotine 1 patch transdermal DAILY olanzapine 7.5 mg PO BEDTIME Do you need a note to return to daycare/school/sports/work: No HPI HPI Comments History of Present Illness Details 39 y/o female presents to the walk-in [facility] with complaints of bilateral ear pain, itching, and redness for the past month. She reports delaying medical care, hoping symptoms would improve spontaneously. Also notes redness and itching of both eyes. Denies headaches, dizziness, fevers, chills, nausea, or vomiting. Denies use of OTC medications. [facility] Medical History (Updated 05/02/25 @ 12:02 by Lesly Clements NP) Otitis external Cigarette smoker motivated to quit History of gestational diabetes Smoker unmotivated to quit Eczema History of demise, not currently Fracture of phalanx of index finger with routine healing Schizophrenia Surgical History No pertinent past surgical history Family History Father Family hx-arthritis Hx of diabetes mellitus Hyperlipidemia Mother History of cardiac murmur Tachycardia Brother Schizophrenia Social History Housing: Apartment Patient Tobacco Use Status: Current everyday Tobacco user Cigarettes Per Day: 0.5 Years Smoked: 10 e-Cigarette/Vaping Use: Never Used Current occupational status: unemployed Cognitive needs: No Hearing needs: No Vision needs: No Review of Systems Const All systems reviewed & are unremarkable except as noted in HPI and below Physical Exam Vital Signs: Last Vital Signs Temp 98 F 05/02/25 10:29 Pulse 76 05/02/25 10:29 BP 114/80 05/02/25 10:29 Pulse Ox 97 05/02/25 10:29 Oxygen Delivery Method Room Air 05/02/25 10:29 BMI result Body Mass Index 28.1 Const General: no acute distress Nutritional Appearance: well nourished Orientation/consciousness: patient oriented x3 HEENT Head: Yes normocephalic Ears: no periauricular adenopathy, Abnormal EAC present erythema diffuse and otic discharge purulent diffuse, external ear abnormal and TM abnormal bulging bilateral, wth effusion serous, erythematous bilateral and retracted; not perforated General nose exam: Normal external nose present Face and sinus: Yes sinuses nontender Mouth: moist mucous membranes Throat: Yes uvula midline Eyes Eyelids: Yes eyelids normal Conjunctivae: conjunctivae normal Pupils: Equal, round and reactive pupils present EOM: EOMs intact bilaterally Direct Ophthalmoscopy: normal light reflex Resp Effort & Inspection: normal respiratory effort Cardio Heart sounds: S1 normal heart sound present and S2 normal heart sound present Neuro General: patient oriented x3 Cranial nerves: Yes Equal, round and reactive pupils present Assessment & Plan Assessment & Plan (1) Otitis external: Code(s): H60.90 - Unspecified otitis externa, unspecified ear Qualifiers: Otitis externa type: diffuse Chronicity: acute Laterality: bilateral Qualified Code(s): H60.313 - Diffuse otitis externa, bilateral Plan: Likely Otitis externa (bilateral), vs Fungal. Prescribed otic drops Clotrimazole BID for 10 days. Prescribed Oral Abx. Augmentin. Recommend antihistamine or antiallergy eye drops (e.g., olopatadine). Avoid water entry or manipulation of ears (e.g., Q-tips). Follow-up in 3-7 days or sooner if symptoms worsen Medications: New clotrimazole 1% 1 appl topical BID 30 mL 0RF 10 days H60.90 - Unspecified otitis externa, unspecified ear amoxicillin-pot clavulanate 875-125 mg 1 tab PO BID 10 tabs 0RF 5 days H60.90 - Unspecified otitis externa, unspecified ear Coding Level of Care Code Est Pt Level 4 (42252) Diagnoses Acute diffuse otitis externa of both ears H60.313 Otitis externa type: diffuse Chronicity: acute Laterality: bilateral Time Spent (min) 20
--- OUTSIDE RECORDS SUMMARY | 2025-05-02 12:06 | XMS_ITS | Clinical Summary ---
Author Organization [facility] Address [address] [place] [address] Care Team Providers Care Structural Steel Equipment Erector Name Role Phone Jodie Polk MD Primary Care Provider Unava ilable Social History Tobacco Use Types Packs/Day Years Used Date Smoking Tobacco: Never Assessed Comments Unknown Sex and Gender Information Value Date Recorded Sex Assigned at Not on file Legal Sex Female 4:27 PM EST Gender Identity Not on file Sexual Orientation Not on file Plan of Treatment Health Maintenance Due Date Last Done Comments DTaP,Tdap,and Td Vaccines (1 - Tdap) 2004 Hepatitis B Vaccines (1 of 3 - 19+ 3-dose series) 2004 Cervical Cancer Screening: P ap Smear 2006 HPV Vaccines (1 - 3-dose SCD M series) 2012 Depression Screening 06/23/2024 COVID-19 Vaccine (1 - 2023-2 5 season) 2025 Influenza Vaccine (#1) 2025 RSV Immunization Adult Patie nts (1 - 1-dose 75+ series) 2060 HIB Vaccines Aged Out No longer eligi ble based on patient's age to complete this topic Hepatitis A Vaccines Aged Out No long er eligible based on patient's age to complete this topic IPV Vaccines Aged Out No longer eligi ble based on patient's age to complete this topic MMR Vaccines Aged Out No longer eligi ble based on patient's age to complete this topic Meningococcal ACWY Vaccine Aged Out N o longer eligible based on patient's age to complete this topic Meningococcal B Vaccine Aged Out No l onger eligible based on patient's age to complete this topic Pneumococcal Vaccine: Pediat rics (0 to 5 Years) and At-Risk Patients (6 to 49 Years) Aged Out No longer eligible b ased on patient's age to complete this topic RSV Immunization Patients Un grabiel 20 months Aged Out No longer eligible b ased on patient's age to complete this topic Varicella Vaccines Aged Out No longer eligible based on patient's age to complete this topic Care Teams Structural Steel Equipment Erector Relationship Specialty Start Date End Date Jodie Polk MD PCP - General Internal Medicine 01/14/17
== END 2025-05-02 11:36 | disposition home or self-care (01) ==
PROVIDERS: PCP Internal Medicine; Visit Provider Nurse Practitioner Family
DX: H60.313 Diffuse otitis externa, bilateral (principal)

== ENCOUNTER → 2025-05-02 10:20 | Outpatient (BNVA) | payer OTHER, SELFPAY | PROVIDERS: PCP Internal Medicine; Visit Provider Nurse Practitioner Family | DX: H60.313 Diffuse otitis externa, bilateral (principal) | CPT/HCPCS: 99212 ==